=== PATIENT | female | born 1990 | race American Indian/Alaskan Native ===

== ENCOUNTER 2016-08-22 20:27 | Emergency (ER) | payer OTHER ==
[2016-08-22] MEDS ORDERED: DUONEB 0.5 MG-3 MG/3 ML SOLN IH ONE (20:54)
--- NOTE | 2016-08-22 20:57 | Emergency Department Report ---
ED Asthma HPI - General Chief Complaint: Adult Asthma Stated Complaint: ASTHMA/CHEST PAIN Time Seen by Provider: 08/22/16 20:56 Source: patient Mode of arrival: Ambulatory Limitations: No Limitations - History of Present Illness Initial Comments: Patient here reports that she has asthma attack with difficulty breathing and shortness of breath and been on different prescription for 2 days. She says shortness of breath started today at 10 AM. Patient blood pressure is 161/101 and she takes Aldactone the patient. She said that she does not have a primary care physician. Reports chills and denies fever. Denies any nausea vomiting or chest pain. MD Complaint: "asthma attack", shortness of breath, wheezing -: This morning Asthma History: history of prior ED visit Severity: moderate Context: recent URI Associated Symptoms: dry cough, fever. denies: chest pain, hemoptysis, leg edema, syncope Treatments Prior to Arrival: other (none) - Related Data Current Asthma Therapy: inhaled bronchodilator Previous Rx's Medication Instructions Recorded Last Taken Type Sulfamethoxazole/Trimethoprim 1 each PO BID #14 tablet 03/21/14 Unknown Rx [Bactrim Ds] metroNIDAZOLE [Flagyl] 500 mg PO BID #20 tablet 03/21/14 Unknown Rx ALBUTEROL Inhaler [ProAir HFA 2 puff IH QID PRN #1 inhalation 08/22/16 Unknown Rx Inhaler] ALBUTEROL NEB's [Proventil 0.083% 2.5 mg IH Q4-6H PRN #1 box 08/22/16 Unknown Rx NEBS] guaiFENesin/CODEINE [Robitussin AC] 10 ml PO QHS #50 ml 08/22/16 Unknown Rx methylPREDNISolone [Medrol] 4 mg PO QAM #1 tab.ds.pk 08/22/16 Unknown Rx Allergies Allergy/AdvReac Type Severity Reaction Status Date / Time No Known Allergies Allergy Verified 03/21/14 19:18 ED Review of Systems ROS: Stated complaint: ASTHMA/CHEST PAIN Other details as noted in HPI Comment: All other systems reviewed and negative Constitutional: chills, fever ENT: congestion. denies: ear pain, throat pain Respiratory: cough, shortness of breath, SOB with exertion, wheezing. denies: SOB at rest, stridor Cardiovascular: denies: chest pain, palpitations, edema, syncope Musculoskeletal: denies: back pain, arthralgia Skin: denies: rash Neurological: denies: headache, weakness, numbness, paresthesias, confusion, abnormal gait, vertigo ED Past Medical Hx - Past Medical History Previous Medical History?: Yes Hx Hypertension: Yes Hx Asthma: Yes - Surgical History Past Surgical History?: No - Family History Family history: hypertension - Social History Smoking Status: Never Smoker Substance Use Type: Alcohol - Medications Home Medications: Home Medications Medication Instructions Recorded Confirmed Last Taken Type Sulfamethoxazole/Trimethoprim 1 each PO BID #14 tablet 03/21/14 Unknown Rx [Bactrim Ds] metroNIDAZOLE [Flagyl] 500 mg PO BID #20 tablet 03/21/14 Unknown Rx ALBUTEROL Inhaler [ProAir HFA 2 puff IH QID PRN #1 inhalation 08/22/16 Unknown Rx Inhaler] ALBUTEROL NEB's [Proventil 0.083% 2.5 mg IH Q4-6H PRN #1 box 08/22/16 Unknown Rx NEBS] guaiFENesin/CODEINE [Robitussin AC] 10 ml PO QHS #50 ml 08/22/16 Unknown Rx methylPREDNISolone [Medrol] 4 mg PO QAM #1 tab.ds.pk 08/22/16 Unknown Rx ED Physical Exam - General Limitations: No Limitations General appearance: alert, in no apparent distress - Head Head exam: Present: atraumatic, normocephalic, normal inspection - Expanded Head Exam Expanded Head exam: Present: laceration - Eye Eye exam: Present: normal appearance, PERRL, EOMI. Absent: conjunctival injection, periorbital swelling, periorbital tenderness Pupils: Present: normal accommodation - ENT ENT exam: Present: normal exam, normal orophraynx, mucous membranes moist, TM's normal bilaterally, normal external ear exam - Neck Neck exam: Present: normal inspection, full ROM. Absent: tenderness, meningismus, lymphadenopathy - Respiratory Respiratory exam: Present: wheezes, other (dry cough). Absent: respiratory distress, rales, rhonchi, stridor, chest wall tenderness, accessory muscle use, decreased breath sounds, prolonged expiratory - Cardiovascular Cardiovascular Exam: Present: regular rate, normal rhythm, normal heart sounds - GI/Abdominal GI/Abdominal exam: Present: soft, normal bowel sounds. Absent: distended, tenderness, guarding, rebound, rigid - Extremities Exam Extremities exam: Present: normal inspection, full ROM, normal capillary refill. Absent: tenderness, pedal edema, joint swelling, calf tenderness - Back Exam Back exam: Present: normal inspection, full ROM. Absent: tenderness, CVA tenderness (R), CVA tenderness (L), muscle spasm, paraspinal tenderness, vertebral tenderness, rash noted - Neurological Exam Neurological exam: Present: alert, oriented X3, normal gait, reflexes normal. Absent: motor sensory deficit - Psychiatric Psychiatric exam: Present: normal affect, normal mood - Skin Skin exam: Present: warm, dry, intact, normal color. Absent: rash ED Course Vital Signs 08/22/16 08/22/16 08/22/16 20:41 20:58 21:10 Temperature 99.2 F Pulse Rate 92 H Pulse Rate [ 87 88 Posterior Bilateral Throughout] Respiratory 22 Rate Respiratory 18 16 Rate [Posterior Bilateral Throughout] Blood Pressure 161/101 O2 Sat by Pulse 100 Oximetry 08/22/16 08/22/16 22:11 22:20 Temperature Pulse Rate 98 H Pulse Rate [ 103 H Posterior Bilateral Throughout] Respiratory 20 Rate Respiratory 16 Rate [Posterior Bilateral Throughout] Blood Pressure O2 Sat by Pulse 100 Oximetry Vital Signs 08/22/16 08/22/16 08/22/16 20:41 20:58 21:10 Temperature 99.2 F Pulse Rate 92 H Pulse Rate [ 87 88 Posterior Bilateral Throughout] Respiratory 22 Rate Respiratory 18 16 Rate [Posterior Bilateral Throughout] Blood Pressure 161/101 Blood Pressure [Left] O2 Sat by Pulse 100 Oximetry 08/22/16 08/22/16 08/22/16 22:11 22:20 23:06 Temperature 98.7 F Pulse Rate 98 H 98 H Pulse Rate [ 103 H Posterior Bilateral Throughout] Respiratory 20 20 Rate Respiratory 16 Rate [Posterior Bilateral Throughout] Blood Pressure Blood Pressure 146/104 [Left] O2 Sat by Pulse 100 100 Oximetry - Reevaluation(s) Reevaluation #1: 08/22/16 22:57 Patient received DuoNeb times one nebulizer emergency room which did not relieve her wheezing. She was also given albuterol 5 mg and prednisone 60 mg. Upon reevaluation, patient says she is feeling better. Her lungs sounds are clear. ED Medical Decision Making - Radiology Data Radiology results: report reviewed X-ray revealed no acute cardiopulmonary findings. - Medical Decision Making ED course:I Discussed the patient that her blood pressure is elevated and she will need to keep a log of her blood pressure and finding a primary care physician for evaluation and correct treatment. Patient says she does not have a primary care physician and she would like to be referred to one. I will refer her to who is ergonomics technician today. Patient receives DuoNeb times one nebulizer, albuterol 5 mg nebulizer and Deltasone 60 mg by mouth in emergency room. She said she felt much better and she is no longer short of breath. I Discussed the patient did a chest x-ray revealed no acute cardiopulmonary findings. Patient discharged home with prescription for albuterol, Medrol dose pack, and guaifenesin with codeine . She says she'll call and Thursday to schedule appointment with primary care physician that she was referred to. Patient if she has a doctor but she has not been doing long time and she does not want to utilize that anymore. Critical care attestation.: If time is entered above; I have spent that time in minutes in the direct care of this critically ill patient, excluding procedure time. ED Disposition Clinical Impression: Cough Asthma exacerbation attacks Qualifiers: Asthma severity: mild persistent Qualified Code(s): J45.31 - Mild persistent asthma with (acute) exacerbation Hypertension Qualifiers: Hypertension type: essential hypertension Qualified Code(s): I10 - Essential ( primary) hypertension Disposition: DISCHARGED TO HOME OR SELFCARE Is pt being admited?: No Does the pt Need Aspirin: No Condition: Stable Instructions: Asthma (ED), Acute Cough (ED), Hypertension (ED) Additional Instructions: Please increase her fluid intake Medication as prescribed Follow-up with primary care physician as instructed Please keep a log of your Blood pressure and take to primary care physician visit for evaluation and treatment. Please do not drive or operate any heavy machinery while taking cough medicine as this will cause drowsiness. Prescriptions: guaiFENesin/CODEINE [Robitussin AC] 10 ml PO QHS #50 ml methylPREDNISolone [Medrol] 4 mg PO QAM #1 tab.ds.pk ALBUTEROL Inhaler [ProAir HFA Inhaler] 2 puff IH QID PRN #1 inhalation PRN Reason: Shortness Of Breath ALBUTEROL NEB's [Proventil 0.083% NEBS] 2.5 mg IH Q4-6H PRN #1 box PRN Reason: Cough and wheezing Referrals: SELIN JIANG MD [Staff Physician] - 08/25/16 Forms: Work/School Release Form(ED)
[2016-08-22] MEDS ORDERED: DELTASONE PO ONE (21:21)
[2016-08-22] MEDS ORDERED: PROVENTIL IH ONE (21:22)
--- NOTE | 2016-08-22 22:51 | XRay Report ---
FINAL REPORT EXAM: XR CHEST ROUTINE 2V HISTORY: cough, fever TECHNIQUE: Two view chest PA and lateral PRIORS: None. FINDINGS: Cardiac and mediastinal contours are unremarkable. No focal pulmonary infiltrate is identified. No pleural fluid collection seen. Pulmonary vasculature is unremarkable. IMPRESSION: Negative two-view chest
[2016-08-22 23:07] VITALS: BP 146/104
== END 2016-08-22 23:24 | disposition home or self-care (01) ==
LOC: ED 20:27
DX: J45.31 Mild persistent asthma with (acute) exacerbation (principal); I10 Essential (primary) hypertension
CPT/HCPCS: 71020; 94640; 99283; J7512

== ENCOUNTER 2017-11-09 10:04 | Emergency (ER) | payer OTHER ==
[2017-11-09 12:01] VITALS: BP 141/80
== END 2017-11-09 12:00 | disposition left against medical advice (07) ==
LOC: ED 10:04
DX: R51 Headache (principal); I10 Essential (primary) hypertension; Z53.21 Procedure and treatment not carried out due to patient leaving prior to being seen by health care provider

== ENCOUNTER 2018-03-18 11:51 | Outpatient (CLI) | payer OTHER, MEDICAID ==
[2018-03-18 13:17] LABS: Hematocrit 38.7 % (30.3-42.9); Hemoglobin 13.3 gm/dl (10.1-14.3); Mean Corpuscular HGB Conc 34 % (30-34); Mean Corpuscular Hemoglobin 31 pg (28-32); Mean Corpuscular Volume 91 fl (79-97); Platelet Count 204 K/mm3 (140-440); Red Blood Count 4.27 M/mm3 (3.65-5.03); Red Cell Distribution Width 14.2 % (13.2-15.2)
[2018-03-18 13:27] LABS: Bacteria,Urine 1+ /HPF (Negative); Bilirubin,Urine NEG (Negative); Blood,Urine NEG (Negative); Color,Urine Yellow (Yellow); Protein,Urine <15 mg/dL mg/dL (Negative); RBC,Urine < 1.0 /HPF (0.0-6.0); Urobilinogen,Urine < 2.0 mg/dL (<2.0)
[2018-03-18] MEDS ORDERED: TYLENOL PO NR (13:30)
[2018-03-18 13:45] LABS: Alanine Aminotransferase 10 units/L (7-56); Uric Acid 6.8 mg/dL (3.5-7.6)
[2018-03-18 14:06] VITALS: BP 138/70
== END 2018-03-18 14:37 | disposition home or self-care (01) ==
LOC: TRG 11:51
PROVIDERS: ATTEND Obstetrics & Gynecology
DX: O47.03 False labor before 37 completed weeks of gestation, third trimester (principal); Z3A.36 36 weeks gestation of pregnancy
CPT/HCPCS: 36415; 59025; 81001; 82565; 83615; 84450; 84460; 84550; 85027

== ENCOUNTER 2018-03-24 19:21 | Inpatient (IN) | payer OTHER, MEDICAID ==
[2018-03-24 20:32] LABS: Hematocrit 42.2 % (30.3-42.9); Mean Corpuscular HGB Conc 33 % (30-34); Mean Corpuscular Hemoglobin 30 pg (28-32); Mean Corpuscular Volume 92 fl (79-97); Platelet Count 211 K/mm3 (140-440); Red Blood Count 4.61 M/mm3 (3.65-5.03); Red Cell Distribution Width 14.6 % (13.2-15.2)
--- NOTE | 2018-03-24 20:33 | History and Physical Report ---
History of Present Illness Date of examination: 03/24/18 Date of admission: 03/24/18 19:21 Chief complaint: Induction of labor due to Chronic hypertension History of present illness: Pt is a 27yo BF EDC 04/11/18; EGA 37 3/7 weeks presents for induction of labor per [facility] due to Chronic hypertension with superimposed preeclampsia. She received care at [facility] since 11 weeks and co- managed with [facility] for Chronic hypertension on Labetolol 200mg BID. Today her BP is 173/88 and she complains of headaches, but denies blurred vision or epigastric pain. records are available and GBS is Positive. Past History Past Medical History: asthma, hypertension (on Labetolol), hematologic disorders (sickle cell trait) Past Surgical History: no surgical history AURICULAR THERAPIST History: chlamydia Family/Genetic History: none Social history: no significant social history, single - Obstetrical History Expected Date of Delivery: 04/11/18 Actual Gestation: 37 Week(s) 4 Day(s) : 1 Medications and Allergies Allergies Allergy/AdvReac Type Severity Reaction Status Date / Time No Known Allergies Allergy Verified 03/18/18 12:12 Home Medications Medication Instructions Recorded Confirmed Last Taken Type Sulfamethoxazole/Trimethoprim 1 each PO BID #14 tablet 03/21/14 Unknown Rx [Bactrim Ds] metroNIDAZOLE [Flagyl] 500 mg PO BID #20 tablet 03/21/14 Unknown Rx ALBUTEROL Inhaler [ProAir HFA 2 puff IH QID PRN #1 inhalation 08/22/16 Unknown Rx Inhaler] ALBUTEROL NEB's [Proventil 0.083% 2.5 mg IH Q4-6H PRN #1 box 08/22/16 Unknown Rx NEBS] guaiFENesin/CODEINE [Robitussin AC] 10 ml PO QHS #50 ml 08/22/16 Unknown Rx methylPREDNISolone [Medrol] 4 mg PO QAM #1 tab.ds.pk 08/22/16 Unknown Rx Review of Systems All systems: negative - Vital Signs Vital signs: Vital Signs Pulse BP 71 173/88 03/24/18 19:50 03/24/18 19:50 Temp Pulse Resp BP Pulse Ox 74 166/91 100 03/24/18 20:21 03/24/18 20:17 03/24/18 20:21 - Physical Exam Breasts: Positive: deferred Cardiovascular: Regular rate Lungs: Positive: Clear to auscultation Abdomen: Positive: normal appearance, soft Genitourinary (Female): Positive: normal external genitalia Uterus: Positive: enlarged Extremities: Positive: normal - Obstetrical FHR: category 1 Uterine Contraction Monitor Mode: External Cervical Dilatation: 0 Cervical Effacement Percentage: 0 station: -3 Uterine Contraction Pattern: Absent Results Result Diagrams: 03/24/18 20:00 03/24/18 20:00 All other labs normal. Assessment and Plan - Patient Problems (1) 37 weeks gestation of Onset Date: 03/24/18 Current Visit: Yes Status: Acute Plan to address problem: A: IUP @ 37 3/7 weeks Chronic hypertension with superimposed preeclampsia +GBS P: Admit to L&D for cervidil/pitocin induction of labor IV Ampicillin when in active labor (2) Chronic hypertension with superimposed pre-eclampsia Onset Date: 03/24/18 Current Visit: Yes Status: Acute
[2018-03-24] MEDS ORDERED: CERVIDIL VG ONE (20:42)
[2018-03-24] MEDS ORDERED: BRETHINE SUB-Q PRN (20:42)
[2018-03-24] MEDS ORDERED: ZOFRAN IV PRN (20:42)
[2018-03-24] MEDS ORDERED: PHENERGAN PO PRN (20:42)
[2018-03-24] MEDS ORDERED: POLYCILLIN/NS 2 GM/100 ML 2 GM/100 ML BAG IV ONE (20:42)
[2018-03-24] MEDS ORDERED: AMBIEN PO PRN (20:42)
[2018-03-24] MEDS ORDERED: BRETHINE IVP PRN (20:42)
[2018-03-24] MEDS ORDERED: SUBLIMAZE IV PRN (20:42)
[2018-03-24] MEDS ORDERED: MINERAL OIL PO PRN (20:42)
[2018-03-24] MEDS ORDERED: STADOL IV PRN (20:42)
[2018-03-24] MEDS ORDERED: XYLOCAINE 2% INFILTRATI ONE (20:42)
[2018-03-24] MEDS ORDERED: MAGNESIUM SULFATE 4GM/100ML 4 GM/100 ML BAG IV ONE (20:45)
[2018-03-24] MEDS ORDERED: APRESOLINE IV PRN (20:46)
[2018-03-24 20:54] LABS: Alanine Aminotransferase 12 units/L (7-56); Uric Acid 6.8 mg/dL (3.5-7.6)
[2018-03-24] MEDS ORDERED: PITOCin/NS 20 UNIT/1000ML DRIP 20 UNITS/1,000 ML BAG IV SCH (21:00)
[2018-03-24] MEDS ORDERED: PITOCin/NS 30 UNIT/500ML 30 UNITS/500 ML BAG IV SCH (21:00)
[2018-03-25] MEDS ORDERED: AMPICILLIN/NS 1 GM/50 ML 1 GM/50 ML BAG IV SCH (00:44)
[2018-03-25] MEDS: TYLENOL PO PRN ×3 (11:11→22:13)
--- NOTE | 2018-03-25 12:53 | Progress Note ---
Assessment and Plan - Patient Problems (1) 37 weeks gestation of Onset Date: 03/24/18 Current Visit: Yes Status: Acute Plan to address problem: A: IUP @ 37 4/7 weeks Chronic hypertension with superimposed preeclampsia +GBS P: Continue with cervidil/pitocin induction of labor IV Ampicillin when in active labor (2) Chronic hypertension with superimposed pre-eclampsia Onset Date: 03/24/18 Current Visit: Yes Status: Acute Subjective - Subjective Date of service: 03/25/18 Principal diagnosis: IUP @ 37 4/7 weeks Interval history: Pt is a 27yo BF EDC 04/11/18; EGA 37 3/7 weeks presents for induction of labor due to Chronic hypertension with superimposed preeclampsia. She received cervidil last night, and now started on pitocin. No complaints. BP ranged 116- 163/58-101 and on IV Magnesium sulfate 2g/hr and PO Labetolol 200mg BID Patient reports: movement normal, contractions, no new complaints, no loss of fluid, no vaginal bleeding Objective - Vital Signs Vital Signs: Vital Signs - 12hr 03/25/18 03/25/18 03/25/18 01:03 01:08 01:13 Temperature Pulse Rate 82 74 70 Respiratory Rate Blood Pressure 136/75 133/72 135/76 O2 Sat by Pulse Oximetry 03/25/18 03/25/18 03/25/18 01:18 01:23 01:28 Temperature Pulse Rate 69 67 65 Respiratory Rate Blood Pressure 156/78 161/76 150/75 O2 Sat by Pulse Oximetry 03/25/18 03/25/18 03/25/18 01:33 01:38 01:43 Temperature Pulse Rate 75 67 83 Respiratory Rate Blood Pressure 138/69 138/70 131/67 O2 Sat by Pulse Oximetry 03/25/18 03/25/18 03/25/18 01:48 01:53 01:58 Temperature Pulse Rate 64 69 71 Respiratory Rate Blood Pressure 132/69 135/75 134/74 O2 Sat by Pulse Oximetry 03/25/18 03/25/18 03/25/18 02:03 02:08 02:13 Temperature Pulse Rate 68 88 67 Respiratory Rate Blood Pressure 139/80 141/86 140/87 O2 Sat by Pulse Oximetry 03/25/18 03/25/18 03/25/18 02:18 02:23 02:28 Temperature Pulse Rate 67 75 67 Respiratory Rate Blood Pressure 135/78 131/76 162/92 O2 Sat by Pulse Oximetry 03/25/18 03/25/18 03/25/18 02:33 02:38 02:43 Temperature Pulse Rate 73 65 68 Respiratory Rate Blood Pressure 149/85 141/82 147/83 O2 Sat by Pulse Oximetry 03/25/18 03/25/18 03/25/18 02:48 02:53 02:58 Temperature Pulse Rate 93 H 64 67 Respiratory Rate Blood Pressure 152/87 142/69 127/64 O2 Sat by Pulse Oximetry 03/25/18 03/25/18 03/25/18 03:03 03:08 03:13 Temperature Pulse Rate 68 73 75 Respiratory Rate Blood Pressure 129/64 123/62 124/61 O2 Sat by Pulse Oximetry 03/25/18 03/25/18 03/25/18 03:18 03:23 03:28 Temperature Pulse Rate 78 75 76 Respiratory Rate Blood Pressure 128/62 138/67 135/69 O2 Sat by Pulse Oximetry 03/25/18 03/25/18 03/25/18 03:33 03:38 03:43 Temperature Pulse Rate 81 77 80 Respiratory Rate Blood Pressure 161/90 137/75 142/78 O2 Sat by Pulse Oximetry 03/25/18 03/25/18 03/25/18 03:48 03:53 03:58 Temperature Pulse Rate 82 76 93 H Respiratory Rate Blood Pressure 160/88 136/85 134/85 O2 Sat by Pulse Oximetry 03/25/18 03/25/18 03/25/18 04:03 04:08 04:13 Temperature Pulse Rate 84 75 86 Respiratory Rate Blood Pressure 141/80 135/75 179/95 O2 Sat by Pulse Oximetry 03/25/18 03/25/18 03/25/18 04:18 04:23 04:28 Temperature Pulse Rate 75 81 80 Respiratory Rate Blood Pressure 151/82 150/78 124/78 O2 Sat by Pulse Oximetry 03/25/18 03/25/18 03/25/18 04:33 04:38 04:43 Temperature Pulse Rate 93 H 78 83 Respiratory Rate Blood Pressure 143/81 130/73 134/75 O2 Sat by Pulse Oximetry 03/25/18 03/25/18 03/25/18 04:48 04:53 04:58 Temperature Pulse Rate 82 85 85 Respiratory Rate Blood Pressure 138/77 132/73 135/71 O2 Sat by Pulse Oximetry 03/25/18 03/25/18 03/25/18 05:30 06:00 06:30 Temperature Pulse Rate 80 80 80 Respiratory Rate Blood Pressure 138/76 146/90 143/94 O2 Sat by Pulse Oximetry 03/25/18 03/25/18 03/25/18 07:00 07:30 07:39 Temperature 98.0 F Pulse Rate 83 92 H 76 Respiratory 18 Rate Blood Pressure 134/86 163/101 151/85 O2 Sat by Pulse 98 Oximetry 03/25/18 03/25/18 03/25/18 07:41 08:00 08:30 Temperature 98.5 F Pulse Rate 77 88 Respiratory Rate Blood Pressure 153/97 146/81 O2 Sat by Pulse Oximetry 03/25/18 03/25/18 03/25/18 09:00 09:30 10:00 Temperature Pulse Rate 80 93 H 96 H Respiratory Rate Blood Pressure 128/65 134/79 134/78 O2 Sat by Pulse Oximetry 03/25/18 03/25/18 03/25/18 10:30 11:01 11:30 Temperature 98.2 F Pulse Rate 82 88 96 H Respiratory 18 Rate Blood Pressure 139/94 143/89 154/92 O2 Sat by Pulse 99 Oximetry 03/25/18 03/25/18 12:02 12:32 Temperature Pulse Rate 85 86 Respiratory Rate Blood Pressure 134/84 116/78 O2 Sat by Pulse Oximetry - Exam Breasts: deferred Abdomen: Present: normal appearance, soft FHR: category 1 Uterine Contraction Monitor Mode: External Uterine Contraction Pattern: Irregular Uterine Tone Measurement Phase: Contraction - Labs Labs: Abnormal Labs 03/24/18 20:00 Creatinine 0.6 L Lactate Dehydrogenase 274 H Laboratory Results - last 24 hr 03/24/18 03/24/18 03/24/18 20:00 20:00 20:00 WBC 9.7 RBC 4.61 Hgb 14.0 Hct 42.2 MCV 92 MCH 30 MCHC 33 RDW 14.6 Plt Count 211 Creatinine 0.6 L Estimated GFR > 60 Uric Acid 6.8 AST 23 ALT 12 Lactate Dehydrogenase 274 H RPR Blood Type O POSITIVE Antibody Screen Negative 03/24/18 23:06 WBC RBC Hgb Hct MCV MCH MCHC RDW Plt Count Creatinine Estimated GFR Uric Acid AST ALT Lactate Dehydrogenase RPR Nonreactive Blood Type Antibody Screen
[2018-03-25] MEDS: PITOCin/NS 30 UNIT/500ML 30 UNITS/500 ML BAG IV SCH ×2 (13:10→19:39)
[2018-03-25] MEDS: LACTATED RINGERS 1,000 ML IV SCH (15:40)
[2018-03-25] MEDS: MAGNESIUM SULFATE 40GM/1000ML 40 GM/1,000 ML BAG IV SCH (21:26)
[2018-03-25] MEDS ORDERED: CERVIDIL VG ONE (21:36)
[2018-03-25] MEDS: NORMODYNE PO SCH (22:10)
[2018-03-26] MEDS: TYLENOL PO PRN (02:30)
[2018-03-26] MEDS: LACTATED RINGERS 1,000 ML IV SCH ×3 (07:56→21:56)
--- NOTE | 2018-03-26 12:50 | Progress Note ---
Assessment and Plan - Patient Problems (1) 37 weeks gestation of Onset Date: 03/24/18 Current Visit: Yes Status: Acute Plan to address problem: A: IUP @ 37 5/7 weeks Chronic hypertension with superimposed preeclampsia +GBS P: Continue with cervidil/pitocin induction of labor IV Ampicillin when in active labor Will reassess for cervical change in 6 hours. Discussed C Section possibility. (2) Chronic hypertension with superimposed pre-eclampsia Onset Date: 03/24/18 Current Visit: Yes Status: Acute Subjective - Subjective Date of service: 03/26/18 Principal diagnosis: IUP @ 37 5/7 weeks Interval history: Pt is a 27yo BF EDC 04/11/18; EGA 37 5/7 weeks presents for induction of labor per [facility] due to Chronic hypertension with superimposed preeclampsia. She received cervidil x 2, and yeni irregularly, and currently on IV Magnesium sulfate and PO Labetolol 200mg BID. Her BP is 130/70 and she denies headaches, blurred vision or epigastric pain. Patient reports: movement normal, contractions, no new complaints, no loss of fluid, no vaginal bleeding Objective - Vital Signs Vital Signs: Vital Signs - 12hr 03/26/18 03/26/18 03/26/18 01:00 01:30 02:00 Temperature Pulse Rate 78 76 85 Respiratory Rate Blood Pressure 118/58 123/67 123/62 Blood Pressure [Right] 03/26/18 03/26/18 03/26/18 02:30 03:00 03:30 Temperature Pulse Rate 77 71 78 Respiratory 20 Rate Blood Pressure 111/61 115/57 121/68 Blood Pressure [Right] 03/26/18 03/26/18 03/26/18 04:00 04:30 05:01 Temperature Pulse Rate 85 74 74 Respiratory Rate Blood Pressure 110/53 94/55 145/80 Blood Pressure [Right] 03/26/18 03/26/18 03/26/18 05:30 06:00 06:30 Temperature Pulse Rate 69 75 71 Respiratory Rate Blood Pressure 106/55 117/67 129/79 Blood Pressure [Right] 03/26/18 03/26/18 03/26/18 07:00 07:30 07:54 Temperature 98.3 F Pulse Rate 75 83 83 Respiratory 18 Rate Blood Pressure 124/73 117/66 Blood Pressure 117/66 [Right] 03/26/18 03/26/18 03/26/18 08:02 08:30 09:00 Temperature Pulse Rate 88 76 75 Respiratory Rate Blood Pressure 124/72 130/85 119/68 Blood Pressure [Right] 03/26/18 03/26/18 03/26/18 10:00 10:30 11:00 Temperature Pulse Rate 68 73 68 Respiratory Rate Blood Pressure 118/59 126/69 133/82 Blood Pressure [Right] 03/26/18 03/26/18 03/26/18 11:30 12:00 12:30 Temperature Pulse Rate 74 74 71 Respiratory Rate Blood Pressure 125/64 139/81 137/88 Blood Pressure [Right] - Exam FHR: category 1 Uterine Contraction Monitor Mode: External Cervical Dilatation: 0 Cervical Effacement Percentage: 70 station: -3 Uterine Contraction Pattern: Irregular Uterine Tone Measurement Phase: Contraction - Labs Labs: Abnormal Labs 03/24/18 03/25/18 03/26/18 20:00 22:59 06:20 Creatinine 0.6 L Magnesium 5.20 H 5.40 H Lactate Dehydrogenase 274 H Laboratory Results - last 24 hr 03/25/18 03/26/18 22:59 06:20 Magnesium 5.20 H 5.40 H
[2018-03-26] MEDS: PITOCin/NS 30 UNIT/500ML 30 UNITS/500 ML BAG IV SCH ×6 (13:28→18:46)
[2018-03-26] MEDS: MAGNESIUM SULFATE 40GM/1000ML 40 GM/1,000 ML BAG IV SCH (18:18)
--- NOTE | 2018-03-26 20:10 | Event Note ---
Date: 03/26/18 Pt is currently on pitocin 28mu/min and yeni q 3-5 mins, however no cervical change - still 0/70/V/-3 Discussed with pt and her boyfriend to proceed with a C Section for failed induction of labor. Consents signed, anesthesia notified, and now awaiting OR availability since a C Section is already in progress.
[2018-03-26] MEDS ORDERED: REGLAN IV SCH (20:12)
[2018-03-26] MEDS ORDERED: BICITRA PO SCH (20:12)
[2018-03-26] MEDS ORDERED: ANCEF/STERILE WATER 2 GM/20 ML 2 GM/20 ML SYRINGE IV NR (21:00)
[2018-03-26] MEDS ORDERED: LACTATED RINGERS 1,000 ML IV SCH (21:00)
[2018-03-26] MEDS ORDERED: PITOCin/NS 20 UNIT/1000ML DRIP 20 UNITS/1,000 ML BAG IV SCH ×2 (21:00→23:45)
[2018-03-26] MEDS ORDERED: PEPCID IV ONE (21:12)
[2018-03-26] MEDS: NORMODYNE PO SCH (22:06)
[2018-03-26] MEDS ORDERED: MORPHINE ONE (22:24)
[2018-03-26] MEDS ORDERED: WATER FOR IRRIG STERILE IR ONE (22:40)
[2018-03-26] MEDS ORDERED: NACL 0.9% IR ONE (22:40)
[2018-03-26] MEDS ORDERED: TORADOL ONE (22:56)
--- NOTE | 2018-03-26 23:36 | Operative Report ---
Operative Report Operative Report: Date of procedure: 03/26/2018 Pre-operative diagnosis: 1. Intrauterine at 37-5/7 weeks 2. Chronic hypertension with superimposed preeclampsia 3. Positive GBS 4. Failed induction of labor Post-operative diagnosis: Same Procedure name(s): Primary low transverse section Surgeon: Tony Waterman MD Greenhouse Transplanter: None Anesthesia: Spinal anesthesia by Dr. Brumfield EBL: 700 MLS Findings: A 2646 g female infant Apgars 2 at 1 minute and 9 at 5 minutes. Clear amniotic fluid. Normal uterus. Normal tubes and ovaries bilaterally. Procedure: After the patient was prepped and draped in usual sterile fashion, and after satisfactory level of epidural anesthesia was obtained, the skin knife was used to make a transverse skin incision. The incision was excised down to layer of the fascia, which was nicked in the midline and extended laterally using the Bovie cautery. The rectus muscles were dissected off the rectus fascia both superiorly and inferiorly. The rectus bellies in the midline, and the peritoneum was entered under direct visualization. The peritoneal incision was extended superiorly and inferiorly. A bladder flap was created and the bladder blade was then placed. The uterus was scored in a curvilinear linear fashion, entered in the midline revealing clear amniotic fluid. The infant's head was delivered onto the surgical field, and the oropharynx and nasopharynx were bulb suctioned. The rest of the 's body was delivered, cord was doubly clamped and cut and the was handed to the waiting respiratory team. Cord blood was obtained. The placenta was manually removed from the uterus, and the uterus removed from its normal anatomical position. After gentle uterine lavage, the incision was inspected and found to be without extensions. It was then closed in 2 layers using 0 Vicryl suture in a running interlocking fashion, the second layer imbricating the first. After good hemostasis was achieved, copious amounts or irrigation was performed, and the gutters were suctioned free of blood and blood clots. Tisseel sealant was sprayed across the uterine incision. The uterus was then returned to its normal anatomical position, and after excellent hemostasis assured, the peritoneum was re-approximated using 3-0 Vicryl suture in a running interlocking fashion, and then the rectus muscles were re-approximated using 3- 0 Vicryl suture in a [id number] configuration. The fascia was then re- approximated using 0 Vicryl suture in running interlocking fashion. The subcutaneous layer was made hemostatic using Bovie cautery, the Tisseel sealant was sprayed across the fascial incision and the skin edges re-approximated using 4-0 Vicryl suture in a sub-cuticular fashion. Patient tolerated the procedure well was transported to recovery in stable condition.
[2018-03-26] MEDS ORDERED: TUCKS PAD TP PRN (23:41)
[2018-03-26] MEDS ORDERED: MYLICON PO PRN (23:41)
[2018-03-26] MEDS ORDERED: NARCAN 0.4 MG/1 ML IV PRN ×2 (23:41→23:44)
[2018-03-26] MEDS ORDERED: LANSINOH TP PRN (23:41)
[2018-03-26] MEDS ORDERED: TORADOL IV PRN (23:41)
[2018-03-26] MEDS ORDERED: PHENERGAN PR PRN ×2 (23:41→23:44)
[2018-03-26] MEDS ORDERED: MILK OF MAGNESIA PO PRN (23:41)
[2018-03-26] MEDS ORDERED: SENOKOT PO PRN (23:41)
--- NOTE | 2018-03-26 23:43 | Anesthesia Consultation ---
Anesthesia Consult and Med Hx Date of service: 03/26/18 - Airway Anesthetic Teeth Evaluation: Good ROM Head & Neck: Adequate Mental/Hyoid Distance: Adequate Mallampati Class: Class II Intubation Access Assessment: Good - Pulmonary Exam CTA: Yes - Cardiac Exam Cardiac Exam: No Murmur - Pre-Operative Health Status ASA Pre-Surgery Classification: ASA2 Proposed Anesthetic Plan: Spinal - Pulmonary Hx Asthma: Yes (inhaler-last used weeks ago) COPD: No Hx Pneumonia: No - Cardiovascular System Hx Hypertension: Yes (labetalol) - Central Nervous System Hx Seizures: No Hx Psychiatric Problems: No - Endocrine Hx Renal Disease: No Hx End Stage Renal Disease: No Hx Hypothyroidism: No Hx Hyperthyroidism: No - Hematic Hx Anemia: Yes Hx Sickle Cell Disease: No - Other Systems Hx Alcohol Use: No
[2018-03-26] MEDS ORDERED: ZOFRAN IV PRN (23:44)
[2018-03-26] MEDS ORDERED: DILAUDID IV PRN ×2 (23:44)
[2018-03-26] MEDS ORDERED: PHENERGAN PO PRN (23:44)
--- NOTE | 2018-03-26 23:44 | Post Anesthesia Evaluation ---
- Post Anesthesia Evaluation Patient Participated: Yes Airway Patent: Yes Stable Respiratory Function: Yes Nausea/Vomiting: No Temp > 96.8F: Yes Pain Manageable: Yes Adequeate Hydration: Yes Anesthesia Complications: No
[2018-03-26] MEDS ORDERED: D5LR 1,000 ML IV SCH (23:45)
[2018-03-26] MEDS ORDERED: SODIUM CHLORIDE FLUSH SYRINGE 10 ML IV NR (23:45)
[2018-03-26] MEDS ORDERED: fentaNYL-BUPIV 2 MCG/ML-0.125% 200 MCG/100 ML BAG EPIDURAL SCH (23:45)
[2018-03-26] MEDS ORDERED: SODIUM CHLORIDE FLUSH SYRINGE 10 ML IV PRN (23:45)
[2018-03-27] MEDS: MAGNESIUM SULFATE 40GM/1000ML 40 GM/1,000 ML BAG IV SCH (00:48)
[2018-03-27] MEDS: ANCEF/NS 1 GM/50 ML 1 GM/50 ML BAG IV SCH ×2 (08:16→17:35)
--- NOTE | 2018-03-27 10:09 | Progress Note ---
Assessment and Plan - Patient Problems (1) 37 weeks gestation of Onset Date: 03/24/18 Current Visit: Yes Status: Resolved (2) Chronic hypertension with superimposed pre-eclampsia Onset Date: 03/24/18 Current Visit: Yes Status: Chronic (3) Status post Onset Date: 03/27/18 Current Visit: Yes Status: Resolved Plan to address problem: A: S/P C Section - POD #1 Chronic hypertension with superimposed preeclampsia - improved on IV Magnesium sulfate and PO Labetolol P: Continue RPOC Continue BP monitoring Anticipate discharge in 24-48hrs Subjective - Subjective Date of service: 03/27/18 Principal diagnosis: s/p C Section - POD #1 Interval history: Pt is feeling well except complaining of vomiting this morning. She is currently on IV Magnesium sulfate and PO Labetolol 200mg BID. Patient reports: voiding normally, pain well controlled, nauseated, no flatus [place]: doing well, bottle feeding Objective - Vital Signs Latest vital signs: Vital Signs Temp Pulse Resp BP BP Pulse Ox 03/27/18 07:31 97.3 F L 56 L 20 151/76 92 03/27/18 05:36 97.4 F L 55 L 20 119/67 94 03/27/18 01:38 97.5 F L 20 125/73 03/27/18 00:45 97.5 F L 49 L 18 122/62 98 03/27/18 00:30 50 L 18 118/63 98 03/27/18 00:15 47 L 18 123/70 98 03/27/18 00:00 50 L 18 110/63 98 03/26/18 23:55 48 L 18 110/65 98 03/26/18 23:50 45 L 18 110/50 98 03/26/18 23:45 97.4 F L 48 L 18 105/70 98 03/26/18 22:01 77 134/83 03/26/18 21:30 80 157/93 03/26/18 21:00 84 173/100 03/26/18 20:37 98.0 F 88 18 157/87 03/26/18 20:31 76 153/97 03/26/18 20:00 72 157/87 03/26/18 19:30 72 131/69 03/26/18 19:00 73 141/87 03/26/18 18:30 74 135/76 03/26/18 18:01 70 135/67 03/26/18 17:31 68 142/73 03/26/18 17:01 76 133/71 03/26/18 16:30 70 127/65 03/26/18 16:00 67 135/67 03/26/18 15:30 86 139/90 03/26/18 15:00 67 131/69 03/26/18 14:31 75 123/84 03/26/18 14:00 85 135/72 03/26/18 13:31 76 145/83 03/26/18 13:00 71 130/71 03/26/18 12:30 71 137/88 03/26/18 12:00 74 139/81 03/26/18 11:30 74 125/64 03/26/18 11:00 68 133/82 03/26/18 10:30 73 126/69 Intake and Output 03/26/18 03/27/18 03/27/18 22:59 06:59 14:59 Intake Total 4131.865 1625 Output Total 4800 1100 Balance -668.135 525 Intake: IV 3051.865 1625 Lactated Ringers 1,000 ml 1458.333 @ 125 mls/hr IV DIRECT ALLIE Rx#:[id number] MAGNESIUM SULFATE 40GM/ 1000 325 1000ML 40 gm In 1,000 ml @ 2 GM/HR 50 mls/hr IV DIRECT ALILE Rx#:[id number] PITOCin/NS 30 UNIT/500ML 93.532 30 units In 500 ml @ 4 mls/hr IV TITR ALLIE Rx#: [id number] Oral 1080 Output: Urine 4800 1100 Indwelling Catheter 4800 Uretheral (Bar) 600 Other: Total, Intake Amount 1080 Total, Output Amount 1200 - Exam Breasts: Present: deferred Cardiovascular: Present: Regular rate Lungs: Present: Clear to auscultation Abdomen: Present: normal appearance, soft Uterus: Present: normal, firm, fundal height below umbilicus Incision: Present: intact, other (bloody), dressed - Labs Labs: Abnormal lab results 03/26/18 03/26/18 Range/Units 15:26 20:48 Magnesium 5.60 H 5.50 H (1.7-2.3) mg/dL Laboratory Tests 0803/24/18 03/24/18 20:00 20:00 20:00 WBC 9.7 RBC 4.61 Hgb 14.0 Hct 42.2 MCV 92 MCH 30 MCHC 33 RDW 14.6 Plt Count 211 Creatinine 0.6 L Estimated GFR > 60 Uric Acid 6.8 Magnesium AST 23 ALT 12 Lactate Dehydrogenase 274 H RPR Blood Type O POSITIVE Antibody Screen Negative 03/24/18 03/25/18 03/26/18 23:06 22:59 06:20 WBC RBC Hgb Hct MCV MCH MCHC RDW Plt Count Creatinine Estimated GFR Uric Acid Magnesium 5.20 H 5.40 H AST ALT Lactate Dehydrogenase RPR Nonreactive Blood Type Antibody Screen 03/26/18 03/26/18 03/27/18 15:26 20:48 15:41 WBC RBC Hgb 12.9 Hct 39.0 MCV MCH MCHC RDW Plt Count Creatinine Estimated GFR Uric Acid Magnesium 5.60 H 5.50 H AST ALT Lactate Dehydrogenase RPR Blood Type Antibody Screen
[2018-03-27] MEDS: PRENATAL VITAMIN PO SCH (12:24)
[2018-03-27] MEDS: FEOSOL PO SCH (12:24)
[2018-03-27] MEDS: NORMODYNE PO SCH ×2 (12:25→22:07)
[2018-03-27 16:04] LABS: Hemoglobin 12.9 gm/dl (10.1-14.3)
[2018-03-27] MEDS ORDERED: BENADRYL PO PRN (18:52)
[2018-03-27] MEDS: MOTRIN PO PRN (20:01)
[2018-03-27] MEDS ORDERED: M-M-R II VACCINE SUB-Q ONE (23:44)
[2018-03-28] MEDS ORDERED: BOOSTRIX IM ONE (06:00)
[2018-03-28] MEDS: NORCO 5/325 PO PRN ×2 (06:33→20:22)
[2018-03-28] MEDS: FEOSOL PO SCH (10:55)
[2018-03-28] MEDS: PRENATAL VITAMIN PO SCH (10:55)
[2018-03-28] MEDS: NORMODYNE PO SCH ×2 (10:56→22:37)
[2018-03-28] MEDS: PERCOCET 5/325 PO PRN (11:14)
[2018-03-28] MEDS: MOTRIN PO PRN ×2 (11:15→20:22)
--- NOTE | 2018-03-28 12:12 | Progress Note ---
Assessment and Plan - Patient Problems (1) 37 weeks gestation of Onset Date: 03/24/18 Current Visit: Yes Status: Resolved (2) Chronic hypertension with superimposed pre-eclampsia Onset Date: 03/24/18 Current Visit: Yes Status: Chronic (3) Status post Onset Date: 03/27/18 Current Visit: Yes Status: Resolved Plan to address problem: A: S/P C Section - POD #2 Chronic hypertension with superimposed preeclampsia - improved on PO Labetolol P: May go home today. Subjective - Subjective Date of service: 03/28/18 Principal diagnosis: s/p C Section - POD #2 Interval history: Pt is feeling well without complaints. She is tolerating a reg diet without nausea or vomiting, ambulating and voiding without difficulty. BP's well controlled on PO Labetolol 200mg BID. Patient reports: appetite normal, voiding normally, pain well controlled, flatus , bowel movement, ambulating normally, no dizzy ambulation, no nauseated [place]: doing well, bottle feeding Objective - Vital Signs Latest vital signs: Vital Signs Temp Pulse Resp BP BP Pulse Ox 03/28/18 10:56 76 137/76 03/28/18 08:57 99.2 F 76 20 137/76 98 03/28/18 06:33 18 03/28/18 04:40 98.7 F 66 18 113/58 03/28/18 01:32 98.5 F 78 20 106/58 03/27/18 22:07 70 130/72 03/27/18 21:00 99.4 F 72 18 126/71 03/27/18 20:01 18 03/27/18 17:45 99 F 81 20 109/57 97 03/27/18 16:00 98.9 F 71 18 134/71 98 03/27/18 15:26 98.9 F 68 18 134/71 99 03/27/18 13:43 97.5 F L 61 20 124/77 99 03/27/18 12:25 56 L 151/76 Intake and Output 03/27/18 03/28/18 03/28/18 22:59 06:59 14:59 Intake Total 600 240 Output Total 2300 1500 Balance -1700 -1260 Intake: Oral 600 Intake, Free Water 240 Output: Urine 2300 1500 Indwelling Catheter 1700 Void 600 1500 Other: Total, Intake Amount 600 Total, Output Amount 600 700 # Bowel Movements 0 - Exam Breasts: Present: deferred Cardiovascular: Present: Regular rate Lungs: Present: Clear to auscultation Abdomen: Present: normal appearance, soft Uterus: Present: normal, firm, fundal height below umbilicus Extremities: Present: normal Incision: Present: normal, dry, intact
--- NOTE | 2018-03-28 13:17 | Discharge Summary ---
Providers - Providers Date of Admission: 03/24/18 19:21 Date of discharge: 03/28/18 Attending physician: SHERRI BIGGS Primary care physician: SHERRI BIGGS Hospitalization Reason for admission: induction of labor, IUP at term, other (Chronic hypertension with Superimposed preeclampsia) Delivery: Procedure: section, primary low transverse Episiotomy: none Laceration: none Incision: normal, dry, intact Other procedures: none complications: none Discharge diagnosis: IUP at term delivered [place] baby: female Hospital course: Pt is a 27yo BF EDC 04/11/18; EGA 37 3/7 weeks who presented for induction of labor per [facility] due to Chronic hypertension with superimposed preeclampsia. She received care at [facility] since 11 weeks and co- managed with [facility] for Chronic hypertension on Labetolol 200mg BID. She received cervidil x 2 followed by pitocin without any cervical dilatation. She was therefore delivered by an uncomplicated C Section. Post operative course was unremarkable with BP's controlled with IV Magnesium sulfate and PO Labetolol. By POD #2 she was tolerating a reg diet without nausea or vomiting, ambulating and voiding without difficulty, and therefore discharged to home on POD #2 in stable condition. Condition at discharge: Good Disposition: DC-01 TO HOME OR SELFCARE - Discharge Diagnoses (1) 37 weeks gestation of Status: Resolved (2) Chronic hypertension with superimposed pre-eclampsia Status: Chronic (3) Status post Status: Resolved Plan - Discharge Medications Prescriptions: Ferrous Sulfate [Feosol 325 MG tab] 325 mg PO BID #60 tablet HYDROcodone/APAP 5-325 [[place] 5-325 mg TAB] 1 each PO Q6HR PRN #30 tablet PRN Reason: Pain, Moderate (4-6) Ibuprofen [Motrin 800 MG tab] 800 mg PO Q6H PRN #30 tablet PRN Reason: Pain, Mild (1-3) Labetalol [Normodyne TAB] 200 mg PO BID #60 tablet Vit-Fe Fumar-FA [ Vitamin] 1 each PO QDAY #30 tablet - Provider Discharge Summary Activity: routine, no sex for 6 weeks, no heavy lifting 4 weeks, no strenuous exercise Diet: routine Instructions: routine Additional instructions: [] Smoking cessation referral if applicable(refer to patient education folder for contact #) [] Refer to [facility]'s [facility] Booklet Call your doctor immediately for: * Fever > 100.5 * Heavy vaginal bleeding ( >1 pad per hour) * Severe persistent headache * Shortness of breath * Reddened, hot, painful area to leg or breast * Drainage or odor from incision. * Keep incision clean and dry at all times and follow doctor's instructions regarding bathing/showering - Follow up plan Follow up: SHERRI BIGGS MD [Primary Care Provider] - 14 Days WAYNE WHATLEY NP [Referring] - 14 Days
[2018-03-29] MEDS: PERCOCET 5/325 PO PRN ×2 (00:05→23:15)
[2018-03-29] MEDS: MOTRIN PO PRN ×2 (05:36→13:40)
[2018-03-29] MEDS: FEOSOL PO SCH (10:30)
[2018-03-29] MEDS: PRENATAL VITAMIN PO SCH (10:30)
[2018-03-29] MEDS: NORMODYNE PO SCH ×2 (10:30→23:14)
[2018-03-30] MEDS: MOTRIN PO PRN (06:40)
[2018-03-30] MEDS: FEOSOL PO SCH (10:38)
[2018-03-30] MEDS: PRENATAL VITAMIN PO SCH (10:38)
[2018-03-30] MEDS: NORMODYNE PO SCH (10:38)
[2018-03-30 10:58] VITALS: BP 149/99
[2018-03-30 11:03] LABS: Color,Urine Yellow (Yellow)
[2018-03-30 11:04] LABS: Bilirubin,Urine Negative (Negative)
[2018-03-30 11:05] LABS: Blood,Urine Large (Negative); Urobilinogen,Urine < 0.2 mg/dL (<2.0)
[2018-03-30 11:08] LABS: Bacteria,Urine 1+ /HPF (Negative)
== END 2018-03-30 16:15 | disposition home or self-care (01) | DRG 766 ==
LOC: LD 19:21 → OB 03-27 02:42
PROVIDERS: ADMIT Obstetrics & Gynecology; ATTEND Obstetrics & Gynecology
PROC: 10D00Z1 Extraction of Products of Conception, Low, Open Approach (ICD-10-PCS; principal; 2018-03-26)
DX: O11.4 Pre-existing hypertension with pre-eclampsia, complicating childbirth (principal); O99.824 Streptococcus B carrier state complicating childbirth; O99.52 Diseases of the respiratory system complicating childbirth; O61.0 Failed medical induction of labor; Z3A.37 37 weeks gestation of pregnancy; Z37.0 Single live birth; J45.909 Unspecified asthma, uncomplicated
CPT/HCPCS: 36415; 81001; 82565; 83615; 83735; 84450; 84460; 84550; 85014; 85018; 85027; 86592; 86706; 86850; 86900; 86901; 88307; 99211; G0463; J0290; J0690; J1885; J2270; J2405; J2590; J2765; J3475; J7120; J7121